=== PATIENT | female | born 1965 | race Caucasian/White ===

== ENCOUNTER 2022-12-15 20:46 | Emergency (ER) | payer SELFPAY ==
[2022-12-15 20:54] VITALS: BP 132/79; PULSE 76; RESP 16; TEMP 36.2; O2SAT 97
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
--- NOTE | 2022-12-15 22:01 | CRLHL7_ITS ---
For Patients: As a result of the Century Cures Act, medical imaging exams and procedure reports are released immediately into your electronic medical record. You may view this report before your referring provider. If you have questions, please contact your health care provider. INDICATION: Right arm pain. COMPARISON: None available. TECHNIQUE: The right shoulder was examined with AP internal and external rotation views for a total of two views. FINDINGS: The osseous structures are in anatomic alignment without fracture or dislocation. There is anatomic alignment of the humeral head and glenoid. Note is made of a bone infarction in the area of the neck of the humerus, unlikely to be of clinical concern. The visualized chest is clear. IMPRESSION: No sign of acute osseous injury. No degenerative changes. 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 Dictated by Simeon Abbasi MD @ 12/15/2022 11:10:11 PM (Electronically Signed)
== END 2022-12-15 23:09 | disposition home or self-care (01) ==
PROVIDERS: Emergency Provider Family Medicine
DX: M77.8 Other enthesopathies, not elsewhere classified (principal)
CPT/HCPCS: 73030; 99283; 99284

== ENCOUNTER 2023-11-18 11:30 | Emergency (ER) | payer SELFPAY ==
[2023-11-18 11:33] VITALS: BP 113/66; PULSE 59; RESP 18; TEMP 36.2; O2SAT 99; BMI 41.8
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
--- NOTE | 2023-11-18 11:48 | XR_ITS ---
Patient: CUBA JOHNSON Facility:?[facility] Patient ID:?[id number] Site Patient ID:?[id number]. Site :?[id number] Study:?XRay-Extremity Bilateral KNEE 2V-11/18/2023 12:11:58 PM Ordering Physician:?NILA Final Report: Indication: Pain Technique: AP and lateral views of the right and left knees. Comparison: None. Findings: No acute displaced fracture or malalignment. Mild degenerative changes of the medial compartments of the bilateral knees. No significant knee joint effusion. Impression: No acute displaced fracture or malalignment. Mild degenerative changes of the medial compartments of the bilateral knees. Dictated by Jamarcus Wen MD @ 11/18/2023 12:51:30 PM Signed by:?Jamarcus Wen MD @11/18/2023 12:51:30 PM (Electronic Signature)
== END 2023-11-18 13:34 | disposition home or self-care (01) ==
PROVIDERS: Emergency Provider Family Medicine
DX: M17.0 Bilateral primary osteoarthritis of knee (principal)
CPT/HCPCS: 73565; 99282; 99283

== ENCOUNTER 2024-01-10 10:07 | Outpatient (CLI) | payer OTHER, SELFPAY | END 2024-01-10 10:08 | disposition home or self-care (01) | PROVIDERS: Visit Provider Family Medicine | DX: E03.9 Hypothyroidism, unspecified (principal); E78.5 Hyperlipidemia, unspecified; R53.83 Other fatigue; E66.01 Morbid (severe) obesity due to excess calories; Z13.6 Encounter for screening for cardiovascular disorders; Z79.1 Long term (current) use of non-steroidal anti-inflammatories (NSAID) | CPT/HCPCS: 80053; 80061; 84439; 84443 ==

== ENCOUNTER 2024-02-03 13:45 | Outpatient (RCR) | payer OTHER, SELFPAY | END 2024-04-24 15:43 | disposition home or self-care (01) | PROVIDERS: PCP Family Medicine; Visit Provider Family Medicine | DX: M25.561 Pain in right knee (principal); M25.562 Pain in left knee; Z51.89 Encounter for other specified aftercare | CPT/HCPCS: 97110; 97161; 97535 ==

== ENCOUNTER 2024-02-26 07:52 | Outpatient (CLI) | payer OTHER, SELFPAY | END 2024-02-26 07:53 | disposition home or self-care (01) | LOC: NFLDREF 02-28 05:55 | PROVIDERS: PCP Family Medicine; Referring Provider Family Medicine; Visit Provider Family Medicine | DX: E03.9 Hypothyroidism, unspecified (principal); E78.5 Hyperlipidemia, unspecified | CPT/HCPCS: 80061; 84443 ==

== ENCOUNTER 2024-06-08 08:25 | Outpatient (CLI) | payer SELFPAY | END 2024-06-08 08:26 | disposition home or self-care (01) | LOC: NFLDREF 11:49 | PROVIDERS: PCP Family Medicine; Referring Provider Family Medicine; Visit Provider Family Medicine | DX: Z00.00 Encounter for general adult medical examination without abnormal findings (principal); E89.0 Postprocedural hypothyroidism; E78.00 Pure hypercholesterolemia, unspecified; R53.83 Other fatigue; D64.9 Anemia, unspecified; E78.5 Hyperlipidemia, unspecified; E66.01 Morbid (severe) obesity due to excess calories; E05.00 Thyrotoxicosis with diffuse goiter without thyrotoxic crisis or storm; Z79.1 Long term (current) use of non-steroidal anti-inflammatories (NSAID); Z12.4 Encounter for screening for malignant neoplasm of cervix | CPT/HCPCS: 80053; 80061; 82607; 82728; 84439; 84443 ==

== ENCOUNTER 2024-06-09 08:14 | Outpatient (CLI) | payer SELFPAY ==
[2024-06-11 11:15] LABS: HPV Source Cervical/Vag; HPV, High Risk by TMA Not Detected
== END 2024-06-09 08:15 | disposition home or self-care (01) ==
PROVIDERS: PCP Family Medicine; Visit Provider Family Medicine
DX: Z00.00 Encounter for general adult medical examination without abnormal findings (principal); Z12.4 Encounter for screening for malignant neoplasm of cervix
CPT/HCPCS: 87624; 87625; 88141; 88142

== ENCOUNTER 2024-07-14 07:30 | Outpatient (RCR) | payer SELFPAY | END 2024-11-11 23:59 | disposition home or self-care (01) | PROVIDERS: PCP Family Medicine; Visit Provider Family Medicine | DX: M25.561 Pain in right knee (principal); M25.562 Pain in left knee; G89.29 Other chronic pain; R26.9 Unspecified abnormalities of gait and mobility; R53.1 Weakness; R26.81 Unsteadiness on feet; Z51.89 Encounter for other specified aftercare | CPT/HCPCS: 97110; 97162 ==

== ENCOUNTER 2024-09-01 08:10 | Outpatient (CLI) | payer OTHER, SELFPAY | END 2024-09-01 08:11 | disposition home or self-care (01) | LOC: NFLDREF 09-02 02:04 | PROVIDERS: PCP Family Medicine; Referring Provider Family Medicine; Visit Provider Family Medicine | DX: E78.5 Hyperlipidemia, unspecified (principal); E05.00 Thyrotoxicosis with diffuse goiter without thyrotoxic crisis or storm; E89.0 Postprocedural hypothyroidism; Z79.1 Long term (current) use of non-steroidal anti-inflammatories (NSAID) | CPT/HCPCS: 80053; 80061; 84443 ==

== ENCOUNTER 2024-11-24 07:30 | Outpatient (RCR) | payer OTHER, SELFPAY | END 2025-03-24 23:59 | disposition home or self-care (01) | PROVIDERS: PCP Family Medicine; Visit Provider Family Medicine | DX: M25.561 Pain in right knee (principal); M25.562 Pain in left knee; G89.29 Other chronic pain; Z51.89 Encounter for other specified aftercare | CPT/HCPCS: 97110; 97140; 97162 ==

== ENCOUNTER 2025-03-02 07:45 | Outpatient (CLI) | payer OTHER, SELFPAY | END 2025-03-02 07:46 | disposition home or self-care (01) | LOC: NFLDREF 03-04 09:59 | PROVIDERS: PCP Family Medicine; Referring Provider Family Medicine; Visit Provider Family Medicine | DX: E78.5 Hyperlipidemia, unspecified (principal) | CPT/HCPCS: 80061 ==